=== PATIENT | male | born 1995 | race Hispanic/Latino ===

== ENCOUNTER 2023-03-27 12:27 | Emergency (ER) | payer SELFPAY ==
[2023-03-27] VITALS (11 sets, daily range): BP systolic 112–159; BP diastolic 59–90
[~2023-03-27] VITALS: Ht 165.1 cm; Wt 93.2 kg
[2023-03-27] MEDS ORDERED: VIBRAMYCIN100 M2 PO ×2 (13:33→13:46)
== END 2023-03-27 14:00 | disposition home or self-care (01) | DRG 603 ==
LOC: ED 12:27
PROC: 0HDDXZZ Extraction of Right Lower Arm Skin, External Approach (ICD-10-PCS; principal; 2023-03-27)
DX: L02.413 Cutaneous abscess of right upper limb (principal); B95.61 Methicillin susceptible Staphylococcus aureus infection as the cause of diseases classified elsewhere